=== PATIENT | female | born 1995 | race Caucasian/White ===

== ENCOUNTER → 2017-11-11 14:17 | Outpatient (CLI) | payer OTHER, MEDICAID, SELFPAY ==
[2017-11-11 20:29] LABS: Urine N gonorrhoeae NOT DETECTED
[2017-11-11 20:51] LABS: Urine Chlamydia NOT DETECTED
== END ==
PROVIDERS: Visit Provider Obstetrics & Gynecology
DX: Z11.3 Encounter for screening for infections with a predominantly sexual mode of transmission (principal)
CPT/HCPCS: 87491; 87591

== ENCOUNTER → 2017-12-10 11:35 | Outpatient (CLI) | payer OTHER, MEDICAID, SELFPAY ==
[2017-12-11 11:10] LABS: Strep Grp B PCR NEG for Grp B Strep
== END ==
PROVIDERS: Visit Provider Obstetrics & Gynecology
DX: Z3A.36 36 weeks gestation of pregnancy (principal)
CPT/HCPCS: 87653

== ENCOUNTER 2017-12-10 12:03 | Outpatient (CLI) | payer OTHER, MEDICAID, SELFPAY ==
--- NOTE | 2017-12-15 18:25 | PM.OBTRLD ---
Visit Information Visit Information Date of evaluation: 12/10/17 Primary OB Provider: Bettye Yeung Reason for Evaluation: Yes non-stress test non-stress test reason: decreased movement Evaluation Evaluation Baseline heart rate: 120 Variability: Moderate (11-25) monitor accelerations: Present monitor decelerations: Absent Category of Tracing: I Diagnosis, Plan/Disposition Plan/Disposition Plan: Assessment: 36 and 4 /7th weeks gestation with decreased movement Category 1 tracing Plan: kick counts reviewed Follow-up as scheduled next week
== END 2017-12-10 12:39 | disposition home or self-care (01) ==
LOC: LABOR 12:27 → OB 12-11 16:27
PROVIDERS: Visit Provider Obstetrics & Gynecology
DX: O36.8130 Decreased fetal movements, third trimester, not applicable or unspecified (principal); Z3A.36 36 weeks gestation of pregnancy
CPT/HCPCS: 59025; 87653; G0378; G0379

== ENCOUNTER 2017-12-17 09:18 | Outpatient (CLI) | payer OTHER, MEDICAID, SELFPAY | END 2017-12-17 10:05 | disposition home or self-care (01) | LOC: OB 12-19 15:39 | PROVIDERS: Visit Provider Obstetrics & Gynecology | DX: O60.03 Preterm labor without delivery, third trimester (principal); Z3A.37 37 weeks gestation of pregnancy | CPT/HCPCS: 59025; G0378; G0379 ==

== ENCOUNTER 2017-12-24 16:46 | Outpatient (CLI) | payer OTHER, MEDICAID, SELFPAY | END 2017-12-24 18:12 | disposition home or self-care (01) | LOC: LABOR 17:22 → OB 12-26 05:41 | PROVIDERS: Visit Provider Obstetrics & Gynecology | DX: Z34.03 Encounter for supervision of normal first pregnancy, third trimester (principal); Z3A.38 38 weeks gestation of pregnancy | CPT/HCPCS: 59025; G0378; G0379 ==

== ENCOUNTER 2017-12-27 07:27 | Inpatient (IN) | payer OTHER, MEDICAID, SELFPAY ==
[2017-12-27] MEDS: LACTATED RINGERS 1,000 ML 100 ML IV (08:10)
[2017-12-27 09:06] LABS: Add Manual Diff / Slide Review NO; Basophils Percent Auto 0.5 % (0-2); Eosinophils Percent Auto 1.1 % (2-4); Hematocrit 41.2 % (36-46); Lymphocytes Percent Auto 37.2 % (25-40); Mean Corpuscular Hemoglobin 30.6 PG (26-34); Mean Corpuscular Volume 90.1 fL (80-100); Monocytes Percent Auto 6.7 % (3-14); Neutrophils Absolute Auto 6500 /uL (3000-5900); Neutrophils Percent Auto 54.5 % (50-75); Platelet Count 215 X10^3/uL (150-400); Red Blood Cell Count 4.57 X10^6/uL (4.0-5.2); Red Cell Distribution Width 13.3 % (11.6-14.8)
[2017-12-27 09:51] VITALS: BP 119/84
[2017-12-27] MEDS: KETOROLAC 30 MG/ML VIAL IV (17:41)
[2017-12-27] MEDS: DERMOPLAST SPRAY 20% 60 ML 1 SPRAY TOP (19:27)
[2017-12-28 00:03] VITALS: TEMP 36.3
[2017-12-28] MEDS: KETOROLAC 30 MG/ML VIAL IV ×3 (00:03→12:26)
[2017-12-28 06:30] LABS: Hematocrit 30.9 % (36-46); Hemoglobin 10.8 g/dL (12.0-16.0)
[2017-12-28] MEDS: DOCUSATE 250 MG CAPSULE PO (09:20)
--- NOTE | 2017-12-28 09:48 | CM.SWNOTE ---
DCP Social Work Note: GERRI is a 22 year old who was admitted on 12/27/17 for Labor and Delivery and she has [employer] and [employer] for insurance. EMR was reviewed. Per MD, MOB delivered healthy baby girl at 39 weeks with Apgars of 8 and 9 but baby girl has some bruising from forceps and delivery. UDS negative. SW Consult to confirm that pt has resources and supports for d/c home tomorrow. Per RN, MOB has had supportive sister and foster mom bedside and MOB bonding with baby and appropriate and breast feeding and no signs of concerns at this time. MOB on medication for depression and followed by MD for ongoing medication management. 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 MOB states that she named baby girl Komal and that FOB is not involved at all but that he has a couple other kids with other MOB's. MOB has local supportive younger sister (19 yrs old) who plans to stay with MOB at discharge and foster mom lives in [place] and can be available for assist if needed. 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 MOB states that she is also on TANF and has the necessary baby items like carseat, diapers, etc.. MOB is mostly concerned with breast feeding and providing baby girl with enough milk and is aware that her home nurse can help support her with breast feeding questions, weigh baby girl, and answer questions as well as the strategic solutions consultant and MOB will establish care for baby at [facility] in [facility] for follow up with [employer]. SW discussed the need to be aware of Post Pardem depression due to her hx of depression and MOB aware and will stay in regular contact with her providers and service resources. SW updated RN. Plan: MOB is comfortable with d/c home with family support tomorrow if medically stable and [facility] home nurse to follow up with MOB and baby in the home after discharge. CRYSTAL Martinez
[2017-12-28 15:29] VITALS: BP 116/78; PULSE 71; RESP 16; TEMP 36.2
[2017-12-28] MEDS: MEASLES,MUMPS,RUBELLA VACC/PF 0.5 ML VIAL SUBCUT (19:17)
--- NOTE | 2018-02-21 11:52 | PM.OBPRVD ---
Delivery date: 12/27/17 Intrapartal events: None Induction method: per pitocin protocol Delivery augmentation: rupture of membranes Delivery monitor: external FHT and external uterine Route of delivery: forceps Indication for instrumentation: nonreassuring FHR tracing Episiotomy description: None Laceration description: Perineal - 3rd Degree Delivery repair: vicryl and chromic Estimated blood loss (mL): 400 Anesthesia type: Epidural Complications: None Narrative: Patient complete and pushed for 2 and 0.5 hr. At 2:45 p.m., Laufe forceps were applied due to variable decelerations. With 1 contraction, the female vertex delivered over an intact perineum at 2:45 p.m.. The forceps were removed. A loose nuchal cord x1 reduced on the perineum. The remainder of the body delivered without difficulty and was placed on mom's abdomen. Cord bloods were obtained. The placenta delivered intact with a 3 vessel cord at 2:49 p.m.. Pitocin was given in the IV fluids. Fundus was massaged to firm. A third-degree perineal laceration was observed and was repaired in the usual fashion with 0 Vicryl, 2 0 Vicryl, and 2 0 chromic. Hemostasis was achieved. Estimated blood loss 400 cc. Apgars 8 at 1 min and 9 at 5 min. Weight 6 lb 2.77 oz. Epidural analgesia. . Mom and infant stable to recovery. Plan for aftercare: To routine care
== END 2017-12-28 19:45 | disposition home or self-care (01) | DRG 542 ==
PROVIDERS: Admitting Provider Obstetrics & Gynecology; Visit Provider Obstetrics & Gynecology
DX: O69.1XX0 Labor and delivery complicated by cord around neck, with compression, not applicable or unspecified (principal); O76 Abnormality in fetal heart rate and rhythm complicating labor and delivery; Z3A.39 39 weeks gestation of pregnancy; Z37.0 Single live birth; O70.20 Third degree perineal laceration during delivery, unspecified
CPT/HCPCS: 01967; 36415; 59050; 59409; 85014; 85018; 85025; 86850; 86900; 86901; G0379; J1885

== ENCOUNTER → 2020-01-05 11:08 | Outpatient (CLI) | payer OTHER, SELFPAY ==
[2020-01-05 13:07] LABS: Follicle Stimulating Hormone 8.12 mIU/mL
== END ==
PROVIDERS: PCP Obstetrics & Gynecology; Referring Provider Obstetrics & Gynecology; Visit Provider Obstetrics & Gynecology
DX: E28.2 Polycystic ovarian syndrome (principal)
CPT/HCPCS: 36415; 83001; 83002

== ENCOUNTER → 2020-04-07 14:23 | Outpatient (CLI) | payer OTHER, SELFPAY ==
[2020-04-07 16:56] LABS: HCG Quantitative /Beta subunit 50939 mIU/mL
== END ==
PROVIDERS: PCP Obstetrics & Gynecology; Referring Provider Obstetrics & Gynecology; Visit Provider Obstetrics & Gynecology
DX: O26.859 Spotting complicating pregnancy, unspecified trimester (principal)
CPT/HCPCS: 36415; 84702

== ENCOUNTER → 2020-04-27 09:52 | Outpatient (CLI) | payer OTHER, SELFPAY ==
[2020-04-27 15:20] LABS: Creatinine Urine Random 31.6 mg/dL; Protein (Total) Urine Random 17 mg/dL (0-12); Protein Creatinine Ratio Urine 0.53 GRAM/24H
[2020-04-30 01:08] LABS: Chlamydia trachomatis NAA Negative (Negative); Neisseria gonorrhoeae NAA Negative (Negative)
== END ==
PROVIDERS: Visit Provider Obstetrics & Gynecology
DX: Z34.90 Encounter for supervision of normal pregnancy, unspecified, unspecified trimester (principal); E04.9 Nontoxic goiter, unspecified; Z86.19 Personal history of other infectious and parasitic diseases
CPT/HCPCS: 82570; 84156; 87491; 87591

== ENCOUNTER → 2020-04-27 10:07 | Outpatient (CLI) | payer OTHER, SELFPAY ==
[2020-04-27 10:33] LABS: Add Manual Diff / Slide Review NO; Basophils Absolute Auto 0 /uL (0-100); Basophils Percent Auto 0.7 % (0-2); Eosinophils Absolute Auto 100 /uL (0-450); Eosinophils Percent Auto 1.4 % (2-4); Hematocrit 39.9 % (36-46); Hemoglobin 13.6 g/dL (12.0-16.0); Lymphocytes Absolute Auto 2400 /uL (1100-4500); Lymphocytes Percent Auto 36.7 % (25-40); Mean Corpuscular Hemoglobin 29.9 PG (26-34); Mean Corpuscular Volume 87.8 fL (80-100); Monocytes Absolute Auto 700 /uL (0-900); Monocytes Percent Auto 10.3 % (3-14); Neutrophils Absolute Auto 3400 /uL (1500-7000); Neutrophils Percent Auto 50.9 % (50-75); Platelet Count 184 X10^3/uL (150-400); Red Blood Cell Count 4.55 X10^6/uL (4.0-5.2); Red Cell Distribution Width 13.7 % (11.6-14.8); White Blood Cell Count 6.6 X10^3/uL (4.5-11.0)
[2020-04-27 10:44] LABS: BUN Creatinine Ratio 12.7 (6-22); Blood Urea Nitrogen 9 mg/dL (7-17); Calcium 10.1 mg/dL (8.4-10.2); Carbon Dioxide 26 mmol/L (22-32); Chloride 102 mmol/L (98-107); Estimated Glomerular Filt Rate > 60.0 mL/min (>60); Glucose 80 mg/dL (70-100); HEMOLYSIS < 15 (0-50); Potassium 3.6 mmol/L (3.4-5.1); Sodium 136 mmol/L (137-145)
[2020-04-27 11:22] LABS: Free T4, Direct Thyroxine 3.33 ng/dL (0.78-2.19)
[2020-04-27 11:39] LABS: Hepatitis B Surface Antigen NEGATIVE s/c (NEGATIVE); Rubella Antibody IgG 14.8 IU/mL (>15); Thyroid Stimulating Hormone < 0.015 uIU/mL (0.47-4.68)
[2020-04-27 11:54] LABS: HIV 1 & 2 Ab/Ag 4th Gen Combo NEGATIVE (NEGATIVE); Hep C Virus Ab w/Reflex Quant NEGATIVE s/c (NEGATIVE)
[2020-04-27 16:02] LABS: Appearance Urine UA CLEAR; Bilirubin Urine UA NEGATIVE (NEGATIVE); Color Urine UA YELLOW; Glucose Urine UA NEGATIVE (Negative); Ketones Urine UA NEGATIVE (NEGATIVE); Leukocyte Esterase Urine UA NEGATIVE (NEGATIVE); Nitrite Urine UA NEGATIVE (Negative); Occult Blood Urine UA NEGATIVE (Negative); Protein Urine UA NEGATIVE (Negative); Urobilinogen Urine UA 0.2 E.U./dL (0.2)
[2020-04-27 16:11] LABS: pH Urine UA 6.5 (4.5-8.0)
[2020-04-29 03:39] LABS: RPR Screen Non Reactive (Non Reactive)
[2020-04-29 12:38] LABS: Varicella IgG Antibody <135 index (Immune >165)
== END ==
PROVIDERS: Referring Provider Obstetrics & Gynecology; Visit Provider Obstetrics & Gynecology
DX: Z34.81 Encounter for supervision of other normal pregnancy, first trimester (principal); E04.9 Nontoxic goiter, unspecified; Z86.19 Personal history of other infectious and parasitic diseases
CPT/HCPCS: 36415; 80048; 80055; 81003; 82570; 84156; 84439; 84443; 86787; 86803; 86850; 86900; 86901; 87086; 87389; 87491; 87591

== ENCOUNTER → 2020-05-11 12:14 | Outpatient (CLI) | payer OTHER, SELFPAY ==
--- NOTE | 2020-05-11 12:15 | DI.US.S_ITS ---
PROCEDURE: US THYROID INDICATIONS: HYPERTHYROIDISM TECHNIQUE: Real-time scanning was performed of the thyroid gland, with image documentation. COMPARISON: None. FINDINGS: The right thyroid lobe measures 1.1 x 2.2 x 5.9 centimeters. The left thyroid lobe measures 1.4 x 2.0 x 5.1 centimeters. There are 2 thyroid nodules on the right both measuring approximately 5 millimeters could, both solid and hypoechoic with smooth margins and no echogenic foci to represent microcalcifications. In the left inferior thyroid there is a 6 millimeter nodule, also solid and hypoechoic with no suspicious features. IMPRESSION: Small 5-6 millimeter thyroid nodules which warrant follow-up in 1 year but not FNA. Dictated by: Nixon Cosby M.D. on 05/11/2020 at 12:51 Approved by: Nixon Cosby M.D. on 05/11/2020 at 12:52
== END ==
PROVIDERS: Referring Provider Obstetrics & Gynecology; Visit Provider Obstetrics & Gynecology
DX: O99.280 Endocrine, nutritional and metabolic diseases complicating pregnancy, unspecified trimester (principal); E05.90 Thyrotoxicosis, unspecified without thyrotoxic crisis or storm; E04.2 Nontoxic multinodular goiter
CPT/HCPCS: 76536

== ENCOUNTER → 2020-05-25 08:55 | Outpatient (CLI) | payer OTHER, SELFPAY ==
[2020-05-27 02:39] LABS: Chlamydia trachomatis NAA Negative (Negative); Neisseria gonorrhoeae NAA Negative (Negative)
== END ==
PROVIDERS: Visit Provider Obstetrics & Gynecology
DX: Z34.81 Encounter for supervision of other normal pregnancy, first trimester (principal); Z3A.12 12 weeks gestation of pregnancy
CPT/HCPCS: 87491; 87591

== ENCOUNTER → 2020-06-09 11:14 | Outpatient (CLI) | payer OTHER, SELFPAY ==
[2020-06-09 12:49] LABS: Free T4, Direct Thyroxine 1.79 ng/dL (0.78-2.19)
[2020-06-09 13:06] LABS: Thyroid Stimulating Hormone < 0.015 uIU/mL (0.47-4.68)
== END ==
PROVIDERS: Referring Provider Obstetrics & Gynecology; Visit Provider Obstetrics & Gynecology
DX: E05.90 Thyrotoxicosis, unspecified without thyrotoxic crisis or storm (principal)
CPT/HCPCS: 36415; 84439; 84443

== ENCOUNTER → 2020-06-22 10:05 | Outpatient (CLI) | payer OTHER, SELFPAY ==
[2020-06-24 20:27] LABS: AFP, Serum 38.9 ng/mL (.); Estriol, Free 1.95 ng/mL (.); Inhibin A, Dimeric 154.72 pg/mL (.); Inhibin A, MoM 0.92 (.); Maternal Ethnicity Caucasian (.); Maternal Weight 132 lbs (.); Number of Fetuses No (.); OSBR Risk 1 IN 10000 (.); Results Report (.); Test Results *Screen Negative* (.); hCG, Serum 88594 mIU/mL (.)
== END ==
PROVIDERS: Referring Provider Obstetrics & Gynecology; Visit Provider Obstetrics & Gynecology
DX: Z34.82 Encounter for supervision of other normal pregnancy, second trimester (principal); Z3A.16 16 weeks gestation of pregnancy
CPT/HCPCS: 36415; 82105; 82677; 84702; 86336

== ENCOUNTER 2024-06-14 00:48 | Emergency (ER) | payer SELFPAY ==
[2024-06-14] VITALS (8 sets, daily range): BP systolic 112–124; BP diastolic 71–78; PULSE 82–101; RESP 16; TEMP 36.8; O2SAT 97–98; BMI 23.3
--- NOTE | 2024-06-14 01:56 | DI.RAD.S_ITS ---
PROCEDURE: XR FOREARM LT 2V INDICATIONS: fall/pain TECHNIQUE: 2 views of the forearm were acquired. COMPARISON: None. FINDINGS: Limited examination due to suboptimal positioning. Bones: No fractures or dislocations. No suspicious bony lesions. Soft tissues: No suspicious soft tissue calcifications or masses. IMPRESSION: No acute bony abnormality. Findings are concordant with the preliminary report. Dictated by: Heber Salazar M.D. on 06/14/2024 at 8:52 Approved by: Heber Salazar M.D. on 06/14/2024 at 8:53
--- NOTE | 2024-06-14 01:56 | DI.RAD.S_ITS ---
PROCEDURE: XR ELBOW LT MIN 3V INDICATIONS: fall/pain TECHNIQUE: 3 views of the elbow were acquired. COMPARISON: None. FINDINGS: Acute, minimally displaced radial head fracture with intra-articular extension. Additional, possible fracture of the articulating surface of the capitellum. Moderate joint effusion. The ulnotrochlear joint is preserved. IMPRESSION: Acute minimally displaced radial head fracture with intra-articular extension, as well as a possible articular surface capitellar fracture. Findings are overall concordant with the preliminary report, with the addition of a possible capitellar fracture. Dictated by: Heber Salazar M.D. on 06/14/2024 at 8:53 Approved by: Heber Salazar M.D. on 06/14/2024 at 8:54
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
[2024-06-14] MEDS: HYDROCODONE/ACET 5/325 PREPACK 1 BOTTLE MISC (03:45)
[2024-06-14] MEDS: KETOROLAC 30 MG/ML VIAL IM (03:46)
== END 2024-06-14 03:58 | disposition home or self-care (01) ==
PROVIDERS: Emergency Provider Emergency Medicine
DX: S52.122A Displaced fracture of head of left radius, initial encounter for closed fracture (principal); W01.0XXA Fall on same level from slipping, tripping and stumbling without subsequent striking against object, initial encounter
CPT/HCPCS: 29125; 73080; 73090; 96372; 99283; 99284; J1885

== ENCOUNTER 2025-01-13 22:05 | Emergency (ER) | payer SELFPAY ==
[2025-01-13 22:45] VITALS: BP 112/75; PULSE 94; RESP 18; TEMP 36.9; O2SAT 99; BMI 23.3
== END 2025-01-14 00:57 | disposition left against medical advice (07) ==
PROVIDERS: Emergency Provider Emergency Medicine
DX: Z53.21 Procedure and treatment not carried out due to patient leaving prior to being seen by health care provider (principal)
CPT/HCPCS: 99281